=== PATIENT | female | born 1970 | race Two or more races ===

== ENCOUNTER 2017-01-07 10:34 | Emergency (ER) | payer OTHER ==
[~2017-01-07] VITALS: Ht 152.4 cm; Wt 43.5 kg
[2017-01-07] MEDS ORDERED: ROBAXIN-750750 MG PO (11:33)
[2017-01-07 12:00] VITALS: BP 102/61
[2017-01-07 12:30] VITALS: BP 102/61
--- NOTE | 2017-01-08 07:22 | Emergency Room Report ---
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 Pain is sharp, 4/10, non-radiating, worse with movement, bending. No associated fever/chills, urinary complaints, lower extremity weakness. No previous lower back injury, surgery. Took Tylenol one time yesterday with some improvement in symptoms. Here for work clearance. Allergies: Coded Allergies: No Known Allergies (Unverified , 01/07/17) Patient History Past Medical History: none Past Surgical History: none Pertinent Family History: none Social History: Denies: alcohol use, drug use, smoking Last Menstrual Period: 12/30/16 Now: No Immunizations: UTD Reviewed Nursing Documentation: PMH: Agreed, PSxH: Agreed Nursing Documentation-PMH Past Medical History: No Stated History Review of Systems All Other Systems: negative except mentioned in HPI Physical Exam Vital Signs Date Time Temp Pulse Resp B/P Pulse Ox O2 Delivery O2 Flow Rate FiO2 01/07/17 10:46 98.8 68 16 99/56 100 Room Air Sp02 EP Interpretation: reviewed, normal General Appearance: normal inspection, well appearing, no apparent distress, alert, GCS 15, non-toxic Head: normocephalic, atraumatic Eyes: bilateral eye EOMI, bilateral eye PERRL ENT: normal ENT inspection, hearing grossly normal, normal voice Neck: normal inspection, full range of motion, supple, no bony tend Respiratory: normal inspection, lungs clear, normal breath sounds, no respiratory distress, no retraction, no wheezing Cardiovascular #1: regular rate, rhythm, no edema Gastrointestinal: normal inspection, normal bowel sounds, non tender, soft, no guarding, no hernia Genitourinary: no CVA tenderness Musculoskeletal: normal inspection, back normal, normal range of motion, Dorota' s Sign negative, other - Mild right paravertebral ttp on exam Neurologic: normal inspection, alert, oriented x3, responsive, 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 VSS. Afebrile. Likely strain and not pyelo given afebrile, no systemic symptoms, known causative injury Low suspicion for cord compression given well appearance, paravertebral ttp, no focal neuro deficits, absence of midline ttp/masses and pain worse with movement with known exacerbating activity Rx Robaxin PMD followup Medically cleared to return to work with NO heavy lifting for 1 week DC home Last Vital Signs Date Time Temp Pulse Resp B/P Pulse Ox O2 Delivery O2 Flow Rate FiO2 01/07/17 12:30 97.8 84 18 102/61 99 Room Air Status: improved Disposition: HOME, SELF-CARE Condition: Improved Scripts Methocarbamol* (ROBAXIN-750*) 750 Mg Tablet 750 MG PO TID, #30 TAB 0 Refills Prov: BENITEZ GA M.D. 01/07/17 Referrals: NOT CHOSEN IPA/,REFERRING (PCP) Patient Instructions: Lumbosacral Strain Additional Instructions: - Take Robaxin up to 3x a day with tylenol for low back pain - Stretch as much as possible - No heavy lifting at work for 1 week - Follow up with your doctor in 1 week as needed BENITEZ GA M.D. Jan 08, 2017 07:22
== END 2017-01-07 12:30 | disposition home or self-care (01) ==
LOC: EMR 11:10
DX: S39.012A Strain of muscle, fascia and tendon of lower back, initial encounter (principal); X50.0XXA Overexertion from strenuous movement or load, initial encounter; Y92.59 Other trade areas as the place of occurrence of the external cause; Y99.0 Civilian activity done for income or pay
CPT/HCPCS: 99283

== ENCOUNTER 2017-01-14 10:24 | Emergency (ER) | payer OTHER ==
[~2017-01-14] VITALS: Ht 157.5 cm; Wt 43.5 kg
[~2017-01-14 10:24] MED LIST: ROBAXIN-750750 MG PO
[2017-01-14 11:14] VITALS: BP 119/64
[2017-01-14] MEDS ORDERED: IBUPROFEN400 MG ORAL (12:19)
[2017-01-14 12:24] VITALS: BP 117/63
[2017-01-14 12:25] VITALS: BP 117/63
--- NOTE | 2017-01-15 11:16 | Diagnostic Imaging Report ---
Indications: Fall, right hip injury and pain Technique: 2 views right hip. Findings: Comparison: None No fracture, dislocation, joint space widening , surrounding soft tissue swelling/foreign body/gas, or other acute changes are identified. IMPRESSION: No evidence of acute injury to the right hip.
--- NOTE | 2017-01-17 14:23 | Emergency Room Report ---
History of Present Illness General Chief Complaint: Pain Source: Patient Present Illness HPI 46-year-old female presents ED complain of right hip pain. States since 01/06 she 's been having pain to right hip after a fall at work. Landing on her right side. Denies hitting her head or LOC. Denies any other injuries. States pain is persistent, throbbing, 7/10. Nonradiating. Worse with walking but is able to bear weight. No other aggravating or relieving factors. Denies any other associated symptoms Allergies: Coded Allergies: No Known Allergies (Unverified , 01/07/17) Patient History Past Medical History: none Past Surgical History: none Pertinent Family History: none Social History: Denies: alcohol use, drug use, smoking Last Menstrual Period: 01/10/17 Now: No Immunizations: UTD Reviewed Nursing Documentation: PMH: Agreed, PSxH: Agreed Nursing Documentation-PMH Past Medical History: No Stated History Review of Systems All Other Systems: negative except mentioned in HPI Physical Exam Vital Signs Date Time Temp Pulse Resp B/P Pulse Ox O2 Delivery O2 Flow Rate FiO2 01/14/17 10:46 98.2 69 16 119/64 100 Room Air Sp02 EP Interpretation: reviewed, normal General Appearance: no apparent distress, alert, GCS 15, non-toxic Head: normocephalic Eyes: bilateral eye PERRL, bilateral eye normal inspection ENT: normal ENT inspection Neck: normal inspection Respiratory: normal inspection Cardiovascular #1: normal inspection Gastrointestinal: normal inspection Rectal: deferred Genitourinary: no CVA tenderness Musculoskeletal: normal range of motion, tender - TTP R hiip. no deformity/ bruising Neurologic: alert, oriented x3, responsive, motor strength/tone normal, sensory intact, speech normal Psychiatric: normal inspection Skin: normal inspection Lymphatic: normal inspection Medical Decision Making Diagnostic Impression: Primary Impression: Contusion, hip Qualified Codes: S70.01XA - Contusion of right hip, initial encounter ER Course Hospital Course 46-year-old F presents to ED complaining of R hip pain s/p trip and fall Differential diagnoses include: Fracture, dislocation, sprain, contusion Clinical course Patient placed on stretcher. After initial history and physical, I ordered Xrays of R hip. patient declined pain medications Xrays prelim read shows no acute fracture/dislocation. Diagnosis - hip contusion Stable and discharged to home with prescription. apply ice, keep elevated. weight bear as tolerated. Followup with PMD. Return to ED if symptoms recur or worsen Other X-Ray Diagnostic Results Other X-Ray Diagnostic Results : X-Ray Ordered: R hip EP Interpretation: Yes Findings: no fractures, no dislocation, no soft tissue swelling Number of Views: 3 Last Vital Signs Date Time Temp Pulse Resp B/P Pulse Ox O2 Delivery O2 Flow Rate FiO2 01/14/17 12:25 98.2 73 16 117/63 100 Room Air Status: improved Disposition: HOME, SELF-CARE Condition: Stable Scripts Ibuprofen* (MOTRIN*) 400 Mg Tablet 400 MG ORAL Q8H, #30 TAB 0 Refills Prov: GUERDA GRANDA M.D. 01/14/17 Departure Forms: Return to Work Return to Work Date: Jan 16, 2017 Work Restrictions: No Heavy Lifting Patient Instructions: Hip Pain GUERDA GRANDA M.D. Jan 17, 2017 14:23
== END 2017-01-14 12:26 | disposition home or self-care (01) ==
LOC: EMR 11:25
DX: S70.01XA Contusion of right hip, initial encounter (principal); W19.XXXA Unspecified fall, initial encounter; Y93.9 Activity, unspecified; Y92.9 Unspecified place or not applicable
CPT/HCPCS: 99283